=== PATIENT | female | born 1970 | race Caucasian/White ===

== ENCOUNTER → 2018-02-05 | Day surgery (SDC) | payer OTHER ==
[~2018-02-05] MED LIST: AMOX-559 PO; BUPIV/EPI 0.25% 1:200,000 50ML INFIL ONE; DEXAMETHASONE SOD 4 MG/ML VIAL ONE; FAMOTIDINE(*) 20MG/50ML PREMIX 50 ML IVPB ONE; FLUC150T40 PO; IOPAMIDOL 76% 75 ML INFUS BTL 75 ML ONE; KETOROLAC 30 MG/ML VIAL ONE; LIDOCAINE 2% IV 100 MG/5ML SYR ONE; MAGNESIUM CITRATE 300 ML BTL PO ONE; METF-450 PO; MORPHINE 4 MG/ML SDV IVP ONE; NORMOSOL R SOLN(*) 1000 ML BAG 1,000 ML IV ONE; NS(*) 0.9% 1000 ML BAG 1,000 ML IV ONE; OMEP40CA48 PO; ONDANSETRON 4 MG/2 ML VIAL IVP ONE; ONDANSETRON 4 MG/2 ML VIAL ONE; PIPERACILLIN/TAZO*3.375GM VIAL 3.375 GM in NS(*) 0.9% 100 ML ADDVANT BAG 100 ML IVPB SCH; PRED-1 PO; PROPANOLOL; PROPOFOL EMUL(*) 10MG/ML 20 ML 20 ML ONE; TRAM-420 PO; fentaNYL CITR 100 MCG/2 ML AMP ONE; traMADol 50 MG TAB PO PRN
--- NOTE | 2018-02-05 10:37 | ER Report ---
History and Physical Time Seen By MD: 09:30 Hx. of Stated Complaint: pt reports rectal pain and like "something is stuck right there". frequent flatuation. chills HPI/ROS Previous problem with hemorrhoids. Has had frequent bowel movements over the last few days, and has been feeling a pain/mass in her perineum between her Vagina and anus. No fever/chills, no rectal bleeding. No n/v/d. Not similar to her previous hemorrhoids. Denies abdominal pain. No dysuria/hematuria. Allergies: Coded Allergies: Txorscr-Vcq-Tya Reductase Inhibitor (Verified Allergy, Unknown, 02/05/18) Sulfa (Sulfonamide Antibiotics) (Verified Allergy, Unknown, 02/05/18) morphine (Verified Allergy, Unknown, 02/05/18) Uncoded Allergies: narcotics (Adverse Reaction, Mild, sick too stomach, 02/05/18) Home Meds Active Scripts Amoxicillin/Pot Clav 875-125 Mg Tab (AUGMENTIN 875-125 TABLET) 1 Each Tablet, 1 TAB PO Q12H for 5 Days, #10 TAB 0 Refills Prov:LUIS VELASQUEZ MD 02/05/18 Fluconazole (DIFLUCAN) 150 Mg Tablet, 150 MG PO QDAY, #1 TAB 0 Refills Prov:LUIS VELASQUEZ MD 02/05/18 Tramadol Hcl (TRAMADOL HCL) 50 Mg Tablet, 50 MG PO Q6H PRN for PAIN for 7 Days, #20 TAB Prov:LUIS VELASQUEZ MD 02/05/18 Reported Medications Prednisone 10 Mg Tab (PREDNISONE 10 MG TAB) 10 Mg Tablet, 5 MG PO QDAY, TAB 02/05/18 Metformin Hcl (METFORMIN HCL) 500 Mg Tablet, 1 TAB PO QDAY, TAB 02/05/18 [Propanolol] No Conflict Check 02/05/18 Omeprazole (OMEPRAZOLE) 40 Mg Capsule.dr, 40 MG PO QDAY, CAP 02/05/18 Reviewed Nurses Notes: Yes Old Medical Records Reviewed: Yes Hx Smoking: No Hx Substance Use Disorder: No Hx Alcohol Use: Yes (SOCIAL) Constitutional Vital Sign - Last 24 Hours 02/05/18 02/05/18 02/05/18 02/05/18 09:11 09:26 09:28 09:28 Temp 98.6 Pulse ? 54 Resp 14 B/P (MAP) 135/91 (106) 135/91 Pulse Ox 94 O2 Delivery Room Air 02/05/18 02/05/18 02/05/18 02/05/18 09:41 09:56 10:11 10:26 Pulse 53 52 51 55 Pulse Ox 92 93 92 92 02/05/18 02/05/18 02/05/18 02/05/18 10:41 10:56 11:01 11:12 Pulse 49 60 62 B/P (MAP) 116/67 (83) Pulse Ox 91 93 96 02/05/18 02/05/18 02/05/18 02/05/18 11:16 11:30 11:31 11:46 Pulse 53 56 53 B/P (MAP) 114/86 (95) Pulse Ox 94 95 94 02/05/18 02/05/18 02/05/18 02/05/18 12:00 12:01 12:30 12:31 Pulse 55 58 B/P (MAP) 107/74 (85) 108/67 (81) Pulse Ox 94 96 02/05/18 02/05/18 02/05/18 02/05/18 12:46 13:00 13:05 13:20 Pulse 54 54 64 B/P (MAP) 109/72 (84) Pulse Ox 95 92 93 02/05/18 02/05/18 02/05/18 02/05/18 13:30 13:35 13:50 14:00 Pulse ??? 63 B/P (MAP) 107/76 (86) 113/83 (93) Pulse Ox 93 02/05/18 02/05/18 02/05/18 02/05/18 14:05 14:20 14:30 14:35 Pulse 62 55 55 B/P (MAP) ???/??? (2758) Pulse Ox 94 94 94 Physical Exam General Appearance: The patient is alert, has no immediate need for airway protection and no current signs of toxicity. Eyes: Pupils equal and round no injection. Respiratory: Chest is non tender, lungs are clear to auscultation. Cardiac: regular rate and rhythm Gastrointestinal: Abdomen is soft and non tender, no masses, bowel sounds normal. : No rectal masses pr evidence of fluctuance. Pain can not be reproduced with palpation. Extremities have full range of motion and are non tender. Skin: No rashes or lesions. Medical Decision Making Data Points Result Diagram: 02/05/18 1147 02/05/18 1147 Laboratory Hematology Test 02/05/18 11:47 02/05/18 12:15 Red Blood Count 4.93 M/uL (4.17-5.56) Mean Corpuscular Volume 95.5 fL (80.0-96.0) Mean Corpuscular Hemoglobin 33.2 pg (26.0-33.0) Mean Corpuscular Hemoglobin Concent 34.8 g/dL (32.0-36.0) Red Cell Distribution Width 12.9 % (11.5-14.5) Mean Platelet Volume 8.6 fL (7.2-11.1) Neutrophils (%) (Auto) 66.6 % (39.4-72.5) Lymphocytes (%) (Auto) 25.8 % (17.6-49.6) Monocytes (%) (Auto) 6.3 % (4.1-12.4) Eosinophils (%) (Auto) 1.0 % (0.4-6.7) Basophils (%) (Auto) 0.3 % (0.3-1.4) Nucleated RBC Relative Count (auto) 0.0 /100WBC Neutrophils # (Auto) 6.9 K/uL (2.0-7.4) Lymphocytes # (Auto) 2.7 K/uL (1.3-3.6) Monocytes # (Auto) 0.6 K/uL (0.3-1.0) Eosinophils # (Auto) 0.1 K/uL (0.0-0.5) Basophils # (Auto) 0.0 K/uL (0.0-0.1) Nucleated RBC Absolute Count (auto) 0.01 K/uL Sodium Level 142 mmol/L (137-145) Potassium Level 3.7 mmol/L (3.5-5.0) Chloride Level 113 mmol/L (98-107) Carbon Dioxide Level 21 mmol/L (22-31) Blood Urea Nitrogen 9 mg/dl (7-18) Creatinine 0.70 mg/dl (0.52-1.04) Glomerular Filtration Rate Calc > 60.0 Random Glucose 134 mg/dl (75-110) Calcium Level 9.8 mg/dl (8.4-10.2) Total Bilirubin 1.3 mg/dl (0.2-1.3) Aspartate Amino Transf (AST/SGOT) 24 U/L (0-35) Alanine Aminotransferase (ALT/SGPT) 37 U/L (0-56) Alkaline Phosphatase 64 U/L (0-126) Total Protein 7.2 g/dl (6.3-8.2) Albumin 4.2 g/dl (3.5-5.0) Urine Color Yellow Urine Clarity Clear Urine pH 5.0 pH (4.8-9.5) Urine Specific Irwin 1.013 Urine Protein Negative mg/dL (NEGATIVE) Urine Glucose (UA) Negative mg/dL (NEGATIVE) Urine Ketones Negative mg/dL (NEGATIVE) Urine Blood Small (NEGATIVE) Urine Nitrite Negative (NEGATIVE) Urine Bilirubin Negative (NEGATIVE) Urine Urobilinogen Negative mg/dL (0.2-1.9) Urine Leukocyte Esterase Negative (NEGATIVE) Urine RBC None /HPF (0-2/HPF) Urine WBC 4 /HPF (0-5/HPF) Urine Squamous Epithelial Cells Many /LPF (</=FEW) Urine Bacteria Few /HPF (NONE-FEW) Urine Mucus Few /HPF (NONE-FEW) Chemistry Test 02/05/18 11:47 02/05/18 12:15 White Blood Count 10.3 k/uL (4.5-11.0) Red Blood Count 4.93 M/uL (4.17-5.56) Hemoglobin 16.4 g/dL (12.0-16.0) Hematocrit 47.1 % (34.0-47.0) Mean Corpuscular Volume 95.5 fL (80.0-96.0) Mean Corpuscular Hemoglobin 33.2 pg (26.0-33.0) Mean Corpuscular Hemoglobin Concent 34.8 g/dL (32.0-36.0) Red Cell Distribution Width 12.9 % (11.5-14.5) Platelet Count 201 K/uL (150-450) Mean Platelet Volume 8.6 fL (7.2-11.1) Neutrophils (%) (Auto) 66.6 % (39.4-72.5) Lymphocytes (%) (Auto) 25.8 % (17.6-49.6) Monocytes (%) (Auto) 6.3 % (4.1-12.4) Eosinophils (%) (Auto) 1.0 % (0.4-6.7) Basophils (%) (Auto) 0.3 % (0.3-1.4) Nucleated RBC Relative Count (auto) 0.0 /100WBC Neutrophils # (Auto) 6.9 K/uL (2.0-7.4) Lymphocytes # (Auto) 2.7 K/uL (1.3-3.6) Monocytes # (Auto) 0.6 K/uL (0.3-1.0) Eosinophils # (Auto) 0.1 K/uL (0.0-0.5) Basophils # (Auto) 0.0 K/uL (0.0-0.1) Nucleated RBC Absolute Count (auto) 0.01 K/uL Glomerular Filtration Rate Calc > 60.0 Calcium Level 9.8 mg/dl (8.4-10.2) Total Bilirubin 1.3 mg/dl (0.2-1.3) Aspartate Amino Transf (AST/SGOT) 24 U/L (0-35) Alanine Aminotransferase (ALT/SGPT) 37 U/L (0-56) Alkaline Phosphatase 64 U/L (0-126) Total Protein 7.2 g/dl (6.3-8.2) Albumin 4.2 g/dl (3.5-5.0) Urine Color Yellow Urine Clarity Clear Urine pH 5.0 pH (4.8-9.5) Urine Specific Irwin 1.013 Urine Protein Negative mg/dL (NEGATIVE) Urine Glucose (UA) Negative mg/dL (NEGATIVE) Urine Ketones Negative mg/dL (NEGATIVE) Urine Blood Small (NEGATIVE) Urine Nitrite Negative (NEGATIVE) Urine Bilirubin Negative (NEGATIVE) Urine Urobilinogen Negative mg/dL (0.2-1.9) Urine Leukocyte Esterase Negative (NEGATIVE) Urine RBC None /HPF (0-2/HPF) Urine WBC 4 /HPF (0-5/HPF) Urine Squamous Epithelial Cells Many /LPF (</=FEW) Urine Bacteria Few /HPF (NONE-FEW) Urine Mucus Few /HPF (NONE-FEW) Urinalysis Test 02/05/18 12:15 Urine Color Yellow Urine Clarity Clear Urine pH 5.0 pH (4.8-9.5) Urine Specific Irwin 1.013 Urine Protein Negative mg/dL (NEGATIVE) Urine Glucose (UA) Negative mg/dL (NEGATIVE) Urine Ketones Negative mg/dL (NEGATIVE) Urine Blood Small (NEGATIVE) Urine Nitrite Negative (NEGATIVE) Urine Bilirubin Negative (NEGATIVE) Urine Urobilinogen Negative mg/dL (0.2-1.9) Urine Leukocyte Esterase Negative (NEGATIVE) Urine RBC None /HPF (0-2/HPF) Urine WBC 4 /HPF (0-5/HPF) Urine Squamous Epithelial Cells Many /LPF (</=FEW) Urine Bacteria Few /HPF (NONE-FEW) Urine Mucus Few /HPF (NONE-FEW) ED Course/Re-evaluation ED Course This is a very pleasant 47-year-old female with type II diabetes. She presented to the emergency department with pain in her rectal area both with bowel movement and without. Her rectal exam was normal so CT scan was obtained. CT scan shows a small perianal abscess. I spoke with Dr. Velasquez who will likely take the patient to the OR for definitive care. Decision to Disposition Date: Feb 05, 2018 Decision to Disposition Time: 14:03 Depart Departure Latest Vital Signs Vital Signs Date Time Temp Pulse Resp B/P (MAP) Pulse Ox O2 Delivery O2 Flow Rate FiO2 02/05/18 14:35 55 94 02/05/18 14:30 ???/??? (1665) 02/05/18 09:28 98.6 14 Room Air Impression: Primary Impression: Perianal abscess Condition: Improved Disposition: ADMIT FROM ER TO OR New Scripts Amoxicillin/Pot Clav 875-125 Mg Tab (AUGMENTIN 875-125 TABLET) 1 Each Tablet 1 TAB PO Q12H for 5 Days, #10 TAB 0 Refills Prov: LUIS VELASQUEZ MD 02/05/18 Fluconazole (DIFLUCAN) 150 Mg Tablet 150 MG PO QDAY, #1 TAB 0 Refills Prov: LUIS VELASQUEZ MD 02/05/18 Tramadol Hcl (TRAMADOL HCL) 50 Mg Tablet 50 MG PO Q6H PRN for PAIN for 7 Days, #20 TAB Prov: LUIS VELASQUEZ MD 02/05/18 JA BARRIENTOS MD Feb 05, 2018 10:37
[2018-02-05 12:02] LABS: PLATELET COUNT, AUTOMATED 201 K/uL (150-450)
--- NOTE | 2018-02-05 13:39 | RADIOLOGY IMAGING REPORT ---
FACILITY: [facility] PATIENT NAME: Jennifer Saenz : 1970 MR: [id number] V: [id number] EXAM DATE: ORDERING PHYSICIAN: JA BARRIENTOS TECHNOLOGIST: Location: [facility] Patient: Jennifer Saenz : 1970 Visit/Account:[id number] Date of Sevice: 02/05/2018 EXAMINATION: CT abdomen and pelvis with contrast COMPARISON: None. HISTORY: pt. feels pain/mass in perineum PROCEDURE: Multiplanar contrast enhanced CT of the abdomen and pelvis with 75 mL intravenous Isovue 3 70. One of the following dose optimization techniques was utilized in the performance of this exam: A utomated exposure control; adjustment of the mA and/or kV according to the patient's size; or use of an iterative reconstruction technique. Specific details can be referenced in the facility's radiolo gy CT exam operational policy. FINDINGS: Visualized thorax: Negative. Liver: Hepatic steatosis. Gallbladder and biliary system: Cholecystectomy. No bile duct dilation. Spleen: Negative. Pancreas: Negative. Adrenal glands: Negative. Kidneys and bladder: Left kidney small parapelvic cysts. No renal mass or hydronephrosis. Urinary mikhail dder is unremarkable. Vessels: Aortoiliac minimal atherosclerosis. No aneurysm. Portal venous system and IVC are unremarkab le. Bowel and mesentery: Stomach and small bowel are within normal limits. The appendix base is borderlin e dilated 8 mm but the more distal appendix is decompressed and contains gas. There is no evidence of periappendiceal inflammation. Moderate amount of predominantly liquid stool in the colon. The seen on coronal image 64, there is a 1.9 x 0.6 x 0.5 cm rim-enhancing fluid collection in the spa ce within the anterior perianal tissues adjacent to the posterior vaginal wall. Pelvic organs: Hysterectomy. No adnexal mass. Lymph nodes: No adenopathy. Free air/free fluid: None. Abdominal wall and osseous structures: Negative. IMPRESSION: 1. 1.9 x 0.6 x 0.5 cm rim-enhancing collection in the anterior perianal tissues adjacent to the poste rior vaginal wall. A small perianal abscess is favored with a vaginal wall fluid collection considere d less likely although correlation with exam findings is recommended. 2. Hepatic steatosis. Results were discussed with JA BARRIENTOS at 02/05/2018 1:33 PM. Report Dictated By: Cornelio Maravilla MD at 02/05/2018 1:05 PM Report E-Signed By: Cornelio Maravilla MD at 02/05/2018 1:35 PM WSN:[id number]
--- NOTE | 2018-02-05 14:31 | Gen Surgery History & Physical ---
History of Present Illness Chief Complaint Perineal Pain History of Present Illness Ms. Saenz is a 47yo female who presents with 2 days of progressive perineal pain. She has had pain with hemorrhoids in the past including a hemorrhoidectomy and intially thought it was a recurrence. She applied some Preparation H last night without relief and presents today with increasing pain. Denies fever/chills. History Home Meds Reported Medications Prednisone 10 Mg Tab (PREDNISONE 10 MG TAB) 10 Mg Tablet, 5 MG PO QDAY, TAB 02/05/18 Metformin Hcl (METFORMIN HCL) 500 Mg Tablet, 1 TAB PO QDAY, TAB 02/05/18 [Propanolol] No Conflict Check 02/05/18 Omeprazole (OMEPRAZOLE) 40 Mg Capsule.dr, 40 MG PO QDAY, CAP 02/05/18 Allergies: Coded Allergies: Soavcsv-Cze-Iuy Reductase Inhibitor (Verified Allergy, Unknown, 02/05/18) Sulfa (Sulfonamide Antibiotics) (Verified Allergy, Unknown, 02/05/18) morphine (Verified Allergy, Unknown, 02/05/18) Uncoded Allergies: narcotics (Adverse Reaction, Mild, sick too stomach, 02/05/18) Review of Systems All Systems Reviewed/Normal: Yes, Except as Noted Gastrointestinal: Constipation Musculoskeletal: Pain (shoulder and knee pain due to RA) Exam General Appearance: Alert, Awake Neuro: No Gross deficits Eyes: PERRLA Cardiovascular: Normal Rhythm & Peripheral Pulses Respiratory: No Respiratory Distress GI: Abd Soft and Non-Tender : Other (perineal swelling and pain) Extremities: Soft and Non Tender Integumentary: Skin Intact without Lesion / Mass (except perineum) Psych: Alert & Oriented X3, Appropriate Mood & Affect Medical Decision Making Data Points Result Diagram: 02/05/18 1147 02/05/18 1147 EKG / Imaging Imaging CT pelvis with 1.9x0.6x0.5cm abscess in perineal/perianal region. Assessment and Plan Problems: (1) Perianal abscess Status: Acute Assessment & Plan: Ms. Saenz has DM and an abscess in the perineal area. It is too deep to drain here in the ED so will take her to the OR for I&D. She has not started her Prednisone yet for her newly diagnosed RA. I discussed the findings and plan with her and she has provided consent to proceed. Time Spent: < 30 min Venous Thromboembolism VTE Risk Physician Assess for VTE Risk: Yes Patient's VTE Risk: Low Antithrombotics Is Pt On Any Antithrombotics?: No LUIS DURBIN MD Feb 05, 2018 14:23
--- NOTE | 2018-02-05 15:51 | Post Operative Progress Note ---
Post Operative Progress Note Date: Feb 05, 2018 Time: 15:46 Surgeon: Luis Velasquez MD, FACS [employer] Submarine Cable: None Anesthesia: GETA Pre-Op Diagnosis: Perineal Abscess Post-Op Diagnosis: Same Findings: Predominanly induration, no large cavity or tract; no clear connection into rectum Procedure(s): I&D Perineal Abscess Description Ms. Saenz was taken to the OR and placed in a supine position. After induction of anesthesia, she was placed in a modified lithotomy position. The perineal area was prepped and draped. A #11 blade was used to enter the abscess by cutting between the vaginal and anal openings. The entire area of induration was incised with minimal purulent drainage. Cultures were obtained with swabs. Direct pressure was applied by packing gauze into the wound. This was repeated until hemostasis was obtained. The area was injected with 20ml of 0.25% Marcaine with epinephrine. A gauze was packed for the final dressing as well as an ABD and mesh shorts. She was allowed to awaken from anesthesia, extubated and taken to the PACU in good condition. She tolerated the procedure well. Specimen Removed:(May be N/A): Aerobic and Anaerobic Cultures Complications: None Fluids: 600ml Estimated Blood Loss: 20ml LUIS VELASQUEZ MD Feb 05, 2018 15:51
[2018-02-05 16:30] VITALS: BP 118/79
[2018-02-05 16:36] VITALS: BP 121/96
[2018-02-05 16:39] VITALS: BP 115/66
== END ==
LOC: ER 09:55 → OR 14:48
PROVIDERS: ATTEND Surgery
DX: L02.215 Cutaneous abscess of perineum (principal)
CPT/HCPCS: 56405; 74177; 81001; 85025; 87071; 87073; 87077; 87186; 96361; 96365; 96368; 96375; 99284; J1100; J1885; J2001; J2405; J2543; J2704; J3010; J3490; J7030; J7050; Q9967; 82040; 82247; 82310; 82374; 82435; 82565; 82947; 84075; 84132; 84155; 84295; 84450; 84460; 84520

== ENCOUNTER → 2018-04-28 | Outpatient (CLI) | payer OTHER ==
[~2018-04-28] MED LIST changes: -BUPIV/EPI 0.25% 1:200,000 50ML INFIL ONE; -DEXAMETHASONE SOD 4 MG/ML VIAL ONE; -FAMOTIDINE(*) 20MG/50ML PREMIX 50 ML IVPB ONE; -IOPAMIDOL 76% 75 ML INFUS BTL 75 ML ONE; -KETOROLAC 30 MG/ML VIAL ONE; -LIDOCAINE 2% IV 100 MG/5ML SYR ONE; -MAGNESIUM CITRATE 300 ML BTL PO ONE; -MORPHINE 4 MG/ML SDV IVP ONE; -NORMOSOL R SOLN(*) 1000 ML BAG 1,000 ML IV ONE; -NS(*) 0.9% 1000 ML BAG 1,000 ML IV ONE; -ONDANSETRON 4 MG/2 ML VIAL IVP ONE; -ONDANSETRON 4 MG/2 ML VIAL ONE; -PIPERACILLIN/TAZO*3.375GM VIAL 3.375 GM in NS(*) 0.9% 100 ML ADDVANT BAG 100 ML IVPB SCH; -PROPOFOL EMUL(*) 10MG/ML 20 ML 20 ML ONE; -fentaNYL CITR 100 MCG/2 ML AMP ONE; -traMADol 50 MG TAB PO PRN
--- NOTE | 2018-05-01 18:05 | RADIOLOGY IMAGING REPORT ---
FACILITY: [facility] [place] PATIENT NAME: GRAZYNA ALMANZA : [id number] MR: [id number]: [id number] EXAM DATE: [id number] ORDERING PHYSICIAN: JUMANA RODRIGUEZ TECHNOLOGIST: Chasidy Frausto PROCEDURE:BILATERAL DIGITAL SCREENING MAMMOGRAM WITH CAD ASSISTED INTERPRETATION & 3D TOMOSYNTHESIS COMPARISON:Prior mammograms 09/03/16, 04/08/14, 04/04/13, 04/03/12. INDICATIONS:SCREENING FINDINGS: There is scattered fibroglandular density throughout the breasts. The parenchymal pattern has remained stable allowing for difference in mammographic technique & patient positioning. DIAGNOSTIC CATEGORY 1--NEGATIVE. RECOMMENDATIONS: ROUTINE MAMMOGRAM AND CLINICAL EVALUATION. IMPRESSION: BIRADS 1: Negative. No significant abnormality is seen. Dictated by: Magda Harris M.D. on 04/28/2018 at 15:44 Transcribed by: YASMINE on 04/29/2018 at 12:50 Approved by: Magda Harris M.D. on 05/01/2018 at 18:04 [facility]
== END ==
LOC: MAMO 14:08
PROVIDERS: ATTEND Nurse Practitioner Family
DX: Z12.31 Encounter for screening mammogram for malignant neoplasm of breast (principal)
CPT/HCPCS: 77063; 77067